=== PATIENT | female | born 1975 | race Two or more races ===

== ENCOUNTER 2025-10-10 13:32 | Emergency (ER) | payer OTHER ==
[~2025-10-10] VITALS: Ht 157.5 cm; Wt 170.1 kg
[2025-10-10] MEDS ORDERED: GUAIFENESIN 200 MG/10 ML BLIST.PACK PO ONE ×2 (15:10→15:15)
[2025-10-10] MEDS ORDERED: METHYLPREDNISOLONE SOD SUCC 125 MG VIAL ONE (15:10)
[2025-10-10] MEDS ORDERED: ACETAMINOPHEN 500 MG GEL..CAP PO ONE ×2 (15:10→15:15)
[2025-10-10] MEDS ORDERED: SODIUM CHLORIDE FOR INHALATION 1 VIAL.NEB IH ONE ×2 (15:15→18:50)
[2025-10-10] MEDS ORDERED: METHYLPREDNISOLONE SOD SUCC 125 MG VIAL IV ONE (15:15)
[2025-10-10 16:56] LABS: BASO % 0.4 % (0.1-1.2); EOS # 0.21 (0.04-0.54); EOS % 1.7 % (0.7-7.0); LYMPH # 2.84 (1.18-3.74); LYMPH % 22.4 % (19.3-53.1); MEAN PLATELET VOLUME 10.80 fl (9.4-12.4); MONO # 0.90 (0.24-0.82); MONO % 7.1 % (4.7-12.5); NEUT # 8.61 (1.56-6.13); NEUT % 67.9 % (34.0-71.1); RED CELL DISTRIBUTION WIDTH 15.4 % (11.6-14.4)
[2025-10-10] MEDS ORDERED: CEFTRIAXONE SODIUM 1,000 MG VIAL IM ONE (17:45)
[2025-10-10 18:14] LABS: COVID-19 AG NEGATIVE (NEGATIVE)
[2025-10-10 18:34] LABS: ALT/SGPT 18.0 U/L (12-78); AST/SGOT 14.0 U/L (15-37); BILIRUBIN TOTAL 0.34 mg/dL (0.3-1.2); BUN CREA RATIO 13.0 (7.0-25.0); CREATININE SERUM 0.91 mg/dL (0.55-1.02); GFR 65.98; GLOBULINA 3.7 G/DL (2.4-3.5); GLUCOSE FASTING 111.0 mg/dL (65-100); OSMOLALITY SERUM 284.0 MOSM/KG (275-295)
[2025-10-10] MEDS ORDERED: CEFTRIAXONE SODIUM 1,000 MG VIAL ONE (18:47)
[2025-10-10] MEDS ORDERED: VANACOF DM LIQ240 ML PO (18:54)
[2025-10-10] MEDS ORDERED: ACETAMINOPHEN500 M1 PO (18:54)
[2025-10-10] MEDS ORDERED: ZITHROMAX200 MG PO (18:54)
== END 2025-10-10 20:21 | disposition home or self-care (01) ==
LOC: ER 13:33
DX: J04.0 Acute laryngitis (principal); B97.89 Other viral agents as the cause of diseases classified elsewhere; Z20.822 Contact with and (suspected) exposure to COVID-19